=== PATIENT | male | born 1995 | race Two or more races ===

== ENCOUNTER 2024-06-08 10:38 | Emergency (ER) | payer OTHER ==
[~2024-06-08] VITALS: Ht 177.8 cm; Wt 91.2 kg
[2024-06-08 10:47] VITALS: BP 150/89; PULSE 97; RESP 18; TEMP 98.5; O2SAT 97
--- NOTE | 2024-06-08 11:00 | NUR ---
29-year-old male with no significant past medical history, presents to the ED with a chief complaint of a laceration to his left hand sustained approximately 30 minutes ago. Patient states that he was cutting a door while at work and accidentally cut himself with a utility knife. He denies any bony tenderness but states that the laceration is deep. He denies any numbness or tingling. He denies any other injuries. States that his Tdap is up-to-date. Call light with in reach; pt awaiting eval from provider. [facility] denies Allergies ibuprofen
[2024-06-08] MEDS: LIDOCAINE MPF 1% 10 MG/ML VIAL INJ ONE (11:08)
--- NOTE | 2024-06-08 11:14 | NUR ---
Provider at bedside. pts laceration irrigated per providers orders.
[2024-06-08] MEDS ORDERED: ACET500T99 PO (11:42)
[2024-06-08] MEDS ORDERED: BACITRACIN OINT 500 UNITS/GM PKT TP ONE (11:46)
--- NOTE | 2024-06-08 12:00 | NUR ---
Bacetration ointment placed on affected finger. Pt was able to tolearate meds with no adverse reaction. pt teaching implemented per care of affected area.
[2024-06-08] MEDS: BACITRACIN OINT 500 UNITS/GM PKT TP ONE (12:14)
[2024-06-08 12:15] VITALS: BP 145/89; PULSE 97; RESP 18; TEMP 98.5; O2SAT 97
--- NOTE | 2024-06-08 12:21 | NUR ---
Chart checked and completed. The patient's care was reviewed and supervised by FRAN PASTOR RN.
--- NOTE | 2024-06-08 12:21 | NUR ---
Patient discharged with v/s stable. Written and verbal after care instructions given and explained. Patient verbalized understanding. Ambulatory with steady gait. All questions addressed prior to discharge. Advised to follow up with PMD.
== END 2024-06-08 12:21 | disposition home or self-care (01) ==
LOC: MED 10:38
DX: S61.412A Laceration without foreign body of left hand, initial encounter (principal); Z79.899 Other long term (current) drug therapy; Z88.6 Allergy status to analgesic agent; W26.0XXA Contact with knife, initial encounter; Y93.89 Activity, other specified; Y92.89 Other specified places as the place of occurrence of the external cause; Y99.0 Civilian activity done for income or pay
CPT/HCPCS: 12001; 99282; J2001

== ENCOUNTER 2024-06-10 17:44 | Emergency (ER) | payer OTHER ==
[~2024-06-10] VITALS: Ht 175.3 cm; Wt 92.1 kg
[~2024-06-10 17:44] MED LIST: ACET500T99 PO
[2024-06-10 17:50] VITALS: BP 153/97; PULSE 81; RESP 18; TEMP 98.1; O2SAT 99
--- NOTE | 2024-06-10 18:19 | NUR ---
Patient discharged with v/s stable. Written and verbal after care instructions given FOR [facility] Patient verbalized understanding. Ambulatory with steady gait. All questions addressed prior to discharge. Advised to follow up with PMD. WORK NOTE PROVIDED
== END 2024-06-10 18:19 | disposition home or self-care (01) ==
LOC: MED 17:44
DX: S61.012D Laceration without foreign body of left thumb without damage to nail, subsequent encounter (principal); Z48.00 Encounter for change or removal of nonsurgical wound dressing; Z79.899 Other long term (current) drug therapy; Z88.6 Allergy status to analgesic agent; X58.XXXD Exposure to other specified factors, subsequent encounter
CPT/HCPCS: 99281